=== PATIENT | female | born 1990 | race Caucasian/White ===

== ENCOUNTER 2019-04-05 23:53 | Emergency (ER) | payer SELFPAY ==
[2019-04-06] MEDS ORDERED: LORazepam 2 MG/ML VIAL IM STA (00:07)
[2019-04-06 00:53] LABS: BILIRUBIN,URINE NEGATIVE (NEGATIVE); CLARITY,URINE CLEAR (CLEAR); GLUCOSE, URINE (UA) NEGATIVE (NEGATIVE); KETONES,URINE (UA) NEGATIVE (NEGATIVE); LEUKOCYTE ESTERASE, URINE TRACE (NEGATIVE); NITRITE,URINE POSITIVE (NEGATIVE); OCCULT BLOOD,URINE NEGATIVE (NEGATIVE); PROTEIN,URINE NEGATIVE (NEGATIVE); UROBILINOGEN,URINE 0.2 (NORMAL) E.U./dL (NORMAL)
[2019-04-06 01:01] LABS: BACTERIA,URINE Many /HPF (None Seen); RBC,URINE None Seen /HPF (0-5); SQUAMOUS EPITHELIAL CELL,UR FEW Squamous (<= Few)
--- NOTE | 2019-04-06 01:32 | ED Physician Documentation ---
History of Present Illness - Stated complaint Stated Complaint: PANIC ATTACK - Chief complaint Chief Complaint: MHE - History obtained from History obtained from: Patient, Family - History of Present Illness Timing: Prior to arrival - Additonal information Additional information: This is a 29-year-old who has a history of panic attacks who developed a panic attack tonight while her and her fianc were watching a movie. She was too concerned to take her Klonopin at home because she had 2 beers earlier through the evening. She is too distraught at her initial presentation to even answer any questions for me. She is just standing basically panting and repeating the same words over and over. Review of Systems Unable to obtain: Other (Panic attack and unable to speak more than 1 word at a time) PD PAST MEDICAL HISTORY - Past Medical History Psych: Panic attacks Other Past Medical History: Pt admits to inpatient psych stay before. - Past Surgical History Past Surgical History: No - Present Medications Home Medications: Ambulatory Orders Medication Instructions Recorded Confirmed Nitrofurantoin Monohyd/M-Cryst 100 mg PO BID #14 capsule 04/06/19 [Macrobid 100 mg Capsule] - Allergies Allergies/Adverse Reactions: Allergies Allergy/AdvReac Type Severity Reaction Status Date / Time hydrocodone Allergy Rash Verified 04/06/19 00:00 Penicillins Allergy Rash Verified 04/06/19 00:00 - Social History Does the pt smoke?: Yes Smoking Status: Current every day smoker Does the pt drink ETOH?: Yes PD ED PE NORMAL - Vitals Vital signs reviewed: Yes - General General: Other (Patient is hyperventilating, panting standing at the sink throwing water onto her face and occasionally gagging.) - HEENT HEENT: PERRL, Moist mucous membranes, Other (She is crying.) - Cardiac Cardiac: RRR, No murmur - Respiratory Respiratory: No respiratory distress (Evaluated after the panic attack was under control), Clear bilaterally - Abdomen Abdomen: Normal bowel sounds, Soft - Psych Psych: Other (In the midst of a panic attack) Results - Vitals Vitals: Vital Signs - 24 hr 04/05/19 23:56 Temperature 36.5 C Heart Rate 112 H Respiratory 36 H Rate Blood Pressure 154/105 H O2 Saturation 100 Oxygen O2 Source Room air - Labs Labs: Laboratory Tests 04/06/19 00:30 Urine Color YELLOW Urine Clarity CLEAR Urine pH 6.0 Ur Specific [place] 1.010 Urine Protein NEGATIVE Urine Glucose (UA) NEGATIVE Urine Ketones NEGATIVE Urine Occult Blood NEGATIVE Urine Nitrite POSITIVE H Urine Bilirubin NEGATIVE Urine Urobilinogen 0.2 (NORMAL) Ur Leukocyte Esterase TRACE H Urine RBC None Seen Urine WBC 4-5 Ur Squamous Epith Cells FEW Squamous Urine Bacteria Many H Urine Culture Comments INDICATED PD MEDICAL DECISION MAKING - ED course Complexity details: reviewed results, d/w patient, d/w family ED course: Patient does have a UTI with a positive urinalysis. Cultures been obtained. She is not . We will place her on Macrobid. She is instructed to drink lots of water. We discussed using the Klonopin as a as needed medication. I do not think is unreasonable to use it if she has drank just a couple of drinks but any more than that it certainly would not. In addition we counted discussed that may be the alcohol could be the cause of the panic attacks. Departure - Departure Disposition: 01 Home, Self Care Clinical Impression: Panic attack UTI (urinary tract infection) Qualifiers: Urinary tract infection type: acute cystitis Hematuria presence: without hematuria Qualified Code(s): N30.00 - Acute cystitis without hematuria Condition: Good Instructions: ED UTI Cystitis Female Follow-Up: your,doctor [Other] Prescriptions: Nitrofurantoin Monohyd/M-Cryst [Macrobid 100 mg Capsule] 100 mg PO BID #14 capsule Comments: Take the Macrobid as prescribed twice a day for 7 days. Make sure that you are drinking plenty of water. Follow-up with your primary care provider about whether or not there may be a better way to manage your panic attacks.
[2019-04-06] MEDS ORDERED: NITROFURANTOIN MACRO 100 MG CAPSULE PO STA (01:39)
[2019-04-06 02:01] VITALS: BP 112/81
== END 2019-04-06 02:01 | disposition home or self-care (01) ==
LOC: ED 23:53
DX: F41.0 Panic disorder [episodic paroxysmal anxiety] (principal); N30.00 Acute cystitis without hematuria; F17.200 Nicotine dependence, unspecified, uncomplicated
CPT/HCPCS: 81001; 87086; 87181; 96372; 99283; A9270; J2060